=== PATIENT | male | born 1995 | race Caucasian/White ===

== ENCOUNTER 2016-10-13 15:44 | Emergency (ER) | payer OTHER, BC ==
[~2016-10-13] VITALS: Ht 182.9 cm; Wt 111.1 kg
[2016-10-13] MEDS ORDERED: TETRACAINE 0.5% OPHTH SOLN 4ML OD ONE (16:30)
[2016-10-13] MEDS ORDERED: FLUORESCEIN OPHTH 1 MG STRIP OD ONE (16:30)
[2016-10-13] MEDS ORDERED: ADACEL/BOOSTRIX VACCINE (DIPHTH/PERTUSS/ACELL/TETANUS)0.5ML SYR (90715) IM ONE (17:00)
[2016-10-13] MEDS ORDERED: OFLO3OPSO OD (17:01)
[2016-10-13 17:21] VITALS: BP 138/78
== END 2016-10-13 17:22 | disposition home or self-care (01) ==
LOC: M ED 16:45
DX: T15.01XA Foreign body in cornea, right eye, initial encounter (principal)

== ENCOUNTER → 2017-01-27 | Outpatient (REF) | payer BC ==
[~2017-01-27] MED LIST: OFLO3OPSO OD
[2017-01-27 11:45] LABS: ALBUMIN/GLOBULIN RATIO 1.38 (1.00-1.93); ALKALINE PHOSPHATASE 71 U/L (45-117); ALT/SGPT 50 U/L (12-78); ANION GAP 9 MEQ/L (8-16); AST/SGOT 16 U/L (15-37); BILIRUBIN,TOTAL 0.6 MG/DL (0.2-1.0); BLOOD UREA NITROGEN 19 MG/DL (7-18); CALCIUM LEVEL 9.1 MG/DL (8.5-10.1); CARBON DIOXIDE LEVEL 26 MEQ/L (21-32); CHLORIDE LEVEL 106 MEQ/L (98-107); CHOLESTEROL LEVEL 143 MG/DL (<200); CREATININE FOR GFR 0.84 MG/DL (0.70-1.30); GLOMERULAR FILTRATION RATE > 60.0 (>60); GLUCOSE, FASTING 90 MG/DL (70-105); POTASSIUM SERUM 4.3 MEQ/L (3.5-5.1); SODIUM LEVEL 141 MEQ/L (136-145); TOTAL PROTEIN 6.9 GM/DL (6.4-8.2); TRIGLYCERIDES LEVEL 91 MG/DL (<150)
== END ==
LOC: M LABSMT 08:24
PROVIDERS: ATTEND Nurse Practitioner Women's Health
DX: Z13.220 Encounter for screening for lipoid disorders (principal); Z68.34 Body mass index [BMI] 34.0-34.9, adult; F41.1 Generalized anxiety disorder

== ENCOUNTER → 2017-01-27 | Outpatient (CLI) | payer BC | LOC: M SMT 08:12 | PROVIDERS: ATTEND Nurse Practitioner Women's Health | DX: N46.11 Organic oligospermia (principal); R53.83 Other fatigue ==

== ENCOUNTER → 2017-02-17 | Outpatient (REF) | payer BC | LOC: M SFHCPLAZ 08:47 | PROVIDERS: ATTEND Family Medicine | DX: Z11.3 Encounter for screening for infections with a predominantly sexual mode of transmission (principal) ==

== ENCOUNTER → 2017-03-10 | Outpatient (CLI) | payer BC ==
[2017-03-10 10:44] LABS: % NORMAL FORMS < 4 % (>=4); IMMOTILITY 71 %; NON PROGRESSIVE MOTILITY (c) 19 %; PROGRESSIVE MOTILITY (a) 10 % (>=32); SPERM ABNORMAL FORMS WBC'S NOTED; TOTAL MOTILITY 29 % (>=40)
[2017-03-10 10:45] LABS: TOTAL FUNCTIONAL 0.1 M/Ejac.; TOTAL PROGRESSIVE SPERM 1.8 M/Ejac.
[2017-03-10 13:16] LABS: ESTRADIOL 33.1 PG/ML (<39.8); LUTEINIZING HORMONE 5.3 mIU/mL (1.5-9.3); PROLACTIN 7.7 NG/ML (2.1-17.7)
[2017-03-10 13:17] LABS: FOLLICLE STIMULATING HORMONE 4.3 mIU/mL (1.4-18.1)
[2017-03-11 14:17] LABS: SEX HORMONE BINDING GLOBULIN 25.9 nmol/L (16.5-55.9)
== END ==
LOC: M SMT 08:25
PROVIDERS: ATTEND Urology
DX: N46.11 Organic oligospermia (principal)

== ENCOUNTER 2019-02-10 10:04 | Emergency (ER) | payer BC ==
[~2019-02-10] VITALS: Ht 182.9 cm; Wt 111.4 kg
[2019-02-10 10:57] LABS: BASO # 0.1 10^3/uL (0.0-0.2); EOS # 0.2 10^3/uL (0.0-0.50); EOS % 3.8 % (0.0-3.0); HEMATOCRIT 49.7 % (42.0-52.0); HEMOGLOBIN 16.9 g/dl (13.5-17.5); LYMPH # 1.5 10^3/uL (1.5-6.5); LYMPH % 25.4 % (24.0-44.0); MEAN CORPUSCULAR HEMOGLOBIN 29.1 pg (27.0-33.0); MEAN CORPUSCULAR VOLUME 85.5 fl (80.0-96.0); MONO # 0.5 10^3/uL (0.0-0.8); MONO % 8.2 % (0.0-5.0); NEUTROPHILS # 3.6 10^3/uL (1.8-7.7); NEUTROPHILS % 61.4 % (36.0-66.0); PLATELET COUNT, AUTOMATED 292 10^3/uL (150-450); RED BLOOD COUNT 5.81 10^6/uL (4.30-6.10); WHITE BLOOD COUNT 5.9 10^3/uL (4.0-10.0)
[2019-02-10 11:25] LABS: BLOOD UREA NITROGEN 18 MG/DL (7-18); CALCIUM LEVEL 9.2 MG/DL (8.5-10.1); CARBON DIOXIDE LEVEL 29 MEQ/L (21-32); CHLORIDE LEVEL 104 MEQ/L (98-107); CPK CREATINE PHOSPHOKINASE 142 U/L (39-308); CREATININE FOR GFR 0.98 MG/DL (0.70-1.30); GLOMERULAR FILTRATION RATE > 60.0 (>60); GLUCOSE, FASTING 85 MG/DL (70-100); POTASSIUM SERUM 4.5 MEQ/L (3.5-5.1); SODIUM LEVEL 138 MEQ/L (136-145); TROPONIN I < 0.02 NG/ML (< 0.10)
--- NOTE | 2019-02-10 11:31 | REP ---
Chest x-ray: Two views. History: Central chest pain . Comparison study: No comparison study. . Findings: The lungs are well inflated and free of infiltrate. The pleural angles are sharp. The heart size is normal. Pulmonary vasculature is not increased. No significant bony abnormality is seen. Impression: Negative chest x-ray. Electronically Signed by Tutu Chow MD 02/10/2019 11:22 A
[2019-02-10 12:03] VITALS: BP 145/89
--- NOTE | 2019-02-10 20:12 | ECGEPIP ---
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 Order Number: [id number] Reading MD: Puma Yanes Measurements Intervals [place] Rate: 76 P: 73 ID: [id number] QRS: 28 QRSD: 99 T: 19 QT: 369 QTc: 415 Interpretive Statements SINUS RHYTHM WITH SINUS ARRHYTHMIA INCOMPLETE RIGHT BUNDLE BRANCH BLOCK NO PRIORS FOR COMPARISON Electronically Signed on 02-10-2019 20:12:20 EDT by Puma Yanes
== END 2019-02-10 12:06 | disposition home or self-care (01) ==
LOC: M ED 10:04
DX: F41.9 Anxiety disorder, unspecified (principal); F17.210 Nicotine dependence, cigarettes, uncomplicated

== ENCOUNTER → 2021-11-26 | Outpatient (REF) | payer OTHER, BC ==
[2021-11-26 09:09] LABS: SEMEN APPEARANCE OPAQUE (OPAQUE); SEMEN VISCOSITY LIQUID (LIQUID); SEMEN VOLUME 1.6 ML (2.0-5.0); SEMEN WBC <=1 M/ml (<=1 M/ml)
== END ==
LOC: M SMT 08:59
PROVIDERS: ATTEND Family Medicine
DX: N46.11 Organic oligospermia (principal)

== ENCOUNTER → 2021-11-26 | Outpatient (CLI) | payer BC, OTHER ==
[2021-11-26 10:42] LABS: ALBUMIN 4.1 GM/DL (3.2-5.2); ALT/SGPT 49 U/L (12-78); BILIRUBIN,TOTAL 0.7 MG/DL (0.2-1.0); BLOOD UREA NITROGEN 19 MG/DL (7-18); CALCIUM LEVEL 10.1 MG/DL (8.5-10.1); CARBON DIOXIDE LEVEL 29 MEQ/L (21-32); CHLORIDE LEVEL 107 MEQ/L (98-107); CHOLESTEROL LEVEL 165 MG/DL (<200); CHOLESTEROL RISK RATIO 2.844 (<5); CREATININE FOR GFR 0.97 MG/DL (0.70-1.30); GLOMERULAR FILTRATION RATE > 60.0 (>60); GLUCOSE, FASTING 92 MG/DL (70-100); HDL CHOLESTEROL 58 MG/DL (>40); LDL CHOLESTEROL 89 MG/DL (<100); NON-HDL-C 107 MG/DL; POTASSIUM SERUM 4.7 MEQ/L (3.5-5.1); SODIUM LEVEL 142 MEQ/L (136-145); TOTAL PROTEIN 7.3 GM/DL (6.4-8.2); TRIGLYCERIDES LEVEL 89 MG/DL (<150)
[2021-11-27 19:07] LABS: TESTOSTERONE FREE (DIRECT) 18.8 pg/mL (9.3-26.5)
== END ==
LOC: M LAB 09:29
PROVIDERS: ATTEND Family Medicine
DX: E29.1 Testicular hypofunction (principal); N52.9 Male erectile dysfunction, unspecified; Z13.220 Encounter for screening for lipoid disorders; Z13.1 Encounter for screening for diabetes mellitus

== ENCOUNTER 2023-12-08 15:27 | Emergency (ER) | payer OTHER ==
[~2023-12-08] VITALS: Ht 180.3 cm; Wt 114.1 kg
[~2023-12-08 15:27] MED LIST changes: -OFLO3OPSO OD; +OFLO5DRO OD
[2023-12-08 15:28] VITALS: BP 148/78; TEMP 97.7; O2SAT 100
== END 2023-12-08 16:58 | disposition home or self-care (01) ==
LOC: M ED 15:27
DX: S93.402A Sprain of unspecified ligament of left ankle, initial encounter (principal); X50.1XXA Overexertion from prolonged static or awkward postures, initial encounter; Y92.9 Unspecified place or not applicable; Y93.9 Activity, unspecified; Y99.0 Civilian activity done for income or pay; F41.9 Anxiety disorder, unspecified; F32.A Depression, unspecified

== ENCOUNTER → 2024-04-03 | Outpatient (CLI) | payer OTHER | LOC: M RAD 10:37 | PROVIDERS: ATTEND Family Medicine | DX: I86.1 Scrotal varices (principal) ==

== ENCOUNTER → 2024-04-08 | Outpatient (REF) | payer OTHER ==
[2024-04-09 12:44] LABS: SEMEN APPEARANCE OPAQUE (OPAQUE); SEMEN VISCOSITY LIQUID (LIQUID); SEMEN VOLUME 2.8 ml (2.0-5.0); SPERM CONCENTRATION 13.1 M/ml (>=15.0); WBC CONCENTRATION <=1 M/ml (<=1 M/ml)
== END ==
LOC: M LAB REF 16:17
PROVIDERS: ATTEND Family Medicine
DX: N46.11 Organic oligospermia (principal)

== ENCOUNTER → 2024-04-24 | Outpatient (CLI) | payer OTHER | LOC: M LABDRWAD 08:09 | PROVIDERS: ATTEND Family Medicine | DX: E29.1 Testicular hypofunction (principal); Z53.9 Procedure and treatment not carried out, unspecified reason ==

== ENCOUNTER → 2024-04-24 | Outpatient (REF) | payer OTHER ==
[2024-04-24 14:26] LABS: HEMATOCRIT 50.3 % (42.0-52.0); HEMOGLOBIN 16.7 g/dl (13.5-17.5); MEAN CORPUSCULAR HEMOGLOBIN 28.9 pg (27.0-33.0); MEAN CORPUSCULAR HGB CONC 33.2 g/dl (32.0-36.5); PLATELET COUNT, AUTOMATED 281 10^3/uL (150-450); RED BLOOD COUNT 5.78 10^6/uL (4.30-6.10); WHITE BLOOD COUNT 5.5 10^3/uL (4.0-10.0)
[2024-04-24 14:28] LABS: ALBUMIN 3.8 G/DL (3.2-5.2); ALKALINE PHOSPHATASE 61 U/L (40-129); ALT/SGPT 43 U/L (7.0-40); AST/SGOT 10 U/L (<34); BILIRUBIN,TOTAL 0.4 MG/DL (0.3-1.2); BLOOD UREA NITROGEN 18 MG/DL (9-23); CALCIUM LEVEL 9.6 MG/DL (8.5-10.1); CARBON DIOXIDE LEVEL 30 MMOL/L (20-31); CHLORIDE LEVEL 109 MMOL/L (98-107); CHOLESTEROL LEVEL 145 MG/DL (<200); CHOLESTEROL RISK RATIO 3.17 (<5); CREATININE FOR GFR 0.91 MG/DL (0.70-1.30); GLOMERULAR FILTRATION RATE > 60.0 (>60); GLUCOSE, FASTING 78 MG/DL (60-100); HDL CHOLESTEROL 45.6 MG/DL (>40); LDL CHOLESTEROL 79.2 MG/DL (<100); NON-HDL-C 99.4 MG/DL; POTASSIUM SERUM 4.4 MMOL/L (3.5-5.1); SODIUM LEVEL 140 MMOL/L (136-145); TOTAL PROTEIN 6.7 G/DL (5.7-8.2); TRIGLYCERIDES LEVEL 101 MG/DL (<150)
[2024-04-24 14:30] LABS: FOLLICLE STIMULATING HORMONE 6.1 mIU/ML (1.4-18.1); LUTEINIZING HORMONE 4.2 mIU/ML (1.5-9.3)
[2024-04-24 14:41] LABS: HEMOGLOBIN A1c 4.8 % (4.0-6.0)
[2024-04-25 07:33] LABS: SEX HORMONE BINDING GLOBULIN 26 nmol/L (10-50)
== END ==
LOC: M SFHCPLAZ 08:03
PROVIDERS: ATTEND Family Medicine
DX: N46.11 Organic oligospermia (principal); E29.1 Testicular hypofunction; N52.9 Male erectile dysfunction, unspecified; Z13.220 Encounter for screening for lipoid disorders; Z13.1 Encounter for screening for diabetes mellitus

== ENCOUNTER → 2024-09-07 | Outpatient (CLI) | payer OTHER | LOC: M SLEEP HO 07-12 11:32 | PROVIDERS: ATTEND Family Medicine | DX: R06.83 Snoring (principal) ==